=== PATIENT | male | born 1970 | race Caucasian/White ===

== ENCOUNTER 2019-12-15 15:04 | Emergency (ER) | payer MEDICAID ==
[~2019-12-15] VITALS: Ht 193 cm; Wt 88.7 kg
[2019-12-15 15:07] VITALS: BP 131/92
[2019-12-15] MEDS ORDERED: dexamethasone sod phosphate 10mg/ml inj PO STA (16:11)
[2019-12-15] MEDS ORDERED: PRED20TA PO (16:16)
[2019-12-15] MEDS ORDERED: NYST1000 PO (16:16)
== END 2019-12-15 17:02 | disposition home or self-care (01) ==
LOC: ER 15:05
DX: L23.7 Allergic contact dermatitis due to plants, except food (principal); B37.9 Candidiasis, unspecified; J02.9 Acute pharyngitis, unspecified; Z88.8 Allergy status to other drugs, medicaments and biological substances; Z79.899 Other long term (current) drug therapy
CPT/HCPCS: 99283; J1100

== ENCOUNTER 2022-01-25 21:41 | Emergency (ER) | payer MEDICAID ==
[~2022-01-25] VITALS: Ht 190.5 cm; Wt 97.7 kg
[2022-01-25 21:52] VITALS: BP 164/101
== END 2022-01-25 23:18 | disposition home or self-care (01) ==
LOC: ER 21:42
DX: J39.2 Other diseases of pharynx (principal); R05.9 Cough, unspecified; Z88.8 Allergy status to other drugs, medicaments and biological substances
CPT/HCPCS: 99282

== ENCOUNTER 2023-08-23 18:55 | Emergency (ER) | payer MEDICAID ==
[~2023-08-23] VITALS: Ht 190.5 cm; Wt 117.5 kg
[2023-08-23 19:15] VITALS: BP 151/98; PULSE 120; RESP 18; TEMP 96.8; O2SAT 94
[2023-08-24] MEDS ORDERED: HYDROcodone/acetaminophen 10/325mg tab PO ONE (01:40)
[2023-08-24] MEDS ORDERED: ibuprofen tablet 400 MG TABLET PO ONE (01:40)
[2023-08-24] MEDS ORDERED: IBUP-1984 PO (01:51)
[2023-08-24] MEDS ORDERED: HYDR-3965 PO (01:51)
== END 2023-08-24 03:08 | disposition home or self-care (01) ==
LOC: ER 18:56
DX: S92.002A Unspecified fracture of left calcaneus, initial encounter for closed fracture (principal); Z88.8 Allergy status to other drugs, medicaments and biological substances; W11.XXXA Fall on and from ladder, initial encounter; Y93.89 Activity, other specified; Y92.89 Other specified places as the place of occurrence of the external cause; Y99.8 Other external cause status
CPT/HCPCS: 73610; 73630; 99284